=== PATIENT | male | born 1960 | race Caucasian/White ===

== ENCOUNTER 2019-11-09 08:15 | Inpatient (IN) ==
[2019-11-09] MEDS ORDERED: DEXTROSE 50% 25 GM/50 ML VIAL IV PRN ×2 (10:03)
[2019-11-09] MEDS ORDERED: GLUCAGON 1 MG VIAL IM PRN ×2 (10:03)
[2019-11-09] MEDS ORDERED: CEFUROXIME INJ 1,500 MG in SODIUM CHLORIDE 0.9% 100 ML IV ONE (10:03)
[2019-11-09] MEDS ORDERED: VANCOMYCIN INJ 1,000 MG in SODIUM CHLORIDE 0.9% 250 ML IV ONE (11:32)
[2019-11-09 11:45] LABS: Basophils # 0.1 10*3/uL (0.0-0.2); Basophils % 0.7 % (0.0-0.8); Eosinophils # 0.5 10*3/uL (0.0-0.87); Eosinophils % 5.1 % (0.00-10.9); Hematocrit 48.9 VOL% (42.0-52.0); Hemoglobin 17.1 GM/DL (14.0-18.0); Immature Granulocytes % 0.3 %; Immature Granulocytes Absolute 0.03 #; Lymphocytes # 1.6 10*3/uL (1.4-4.0); Lymphocytes % 17.6 % (21.2-54.2); Mean Platelet Volume 9.4 FL (9.6-12.0); Monocytes % 7.4 % (1.7-12.7); Neutrophils % 68.9 % (38.7-73.9); Platelet Count 193 T/CUMM (130-400); Red Blood Count 5.62 MC/CUMM (3.8-5.5); Red Cell Distribution Width 12.5 % (9.3-17.3)
[2019-11-09 12:14] LABS: Albumin 3.8 G/DL (3.4-5.0); Bilirubin,Total 0.5 MG/DL (0.2-1.0); Calcium 9.6 MG/DL (8.5-10.1); Osmolality,Calculated 273.1 MOS/KG (273-304); Total Protein 8.1 G/DL (6.4-8.3)
[2019-11-09] MEDS ORDERED: hydrALAZINE 20 MG/1 ML VIAL IV PRN (12:54)
[2019-11-09] MEDS: SODIUM CHLORIDE 0.9% 1,000 ML IV SCH (13:14)
[2019-11-09] MEDS ORDERED: INFLUENZA VIRUS VACCINE 0.5 ML SYRINGE IM ONE (14:24)
[2019-11-09] MEDS: CHLORHEXIDINE 4% SOLN 118 ML BOTTLE TOP SCH ×2 (14:59→22:20)
[2019-11-09] MEDS: INSULIN LISPRO 100 UNIT/ML SUBCUT SCH ×2 (16:27→22:20)
[2019-11-09] MEDS: CHLORHEXIDINE 0.12% ORAL RINSE 60 ML BOTTLE SWISH/SPIT SCH (22:21)
[2019-11-10] MEDS ORDERED: PAPAVERINE 60 MG/2 ML VIAL ONE (04:23)
[2019-11-10] MEDS ORDERED: VANCOMYCIN 1,000 MG VIAL ONE (04:23)
[2019-11-10] MEDS ORDERED: VANCOMYCIN 500 MG VIAL ONE (04:23)
[2019-11-10] MEDS ORDERED: DIAZEPAM 5 MG TABLET PO ONE (05:00)
[2019-11-10] MEDS ORDERED: PANTOPRAZOLE 40 MG TABLET PO ONE (05:00)
[2019-11-10] MEDS ORDERED: SUFentanil 250 MCG/5 ML AMP ONE (05:40)
[2019-11-10] MEDS ORDERED: MIDAZOLAM 10 MG/2 ML VIAL ONE (05:41)
[2019-11-10] MEDS ORDERED: MINERAL OIL/PETROLATUM OPH OINT 3.5 GM TUBE ONE (05:41)
[2019-11-10] MEDS ORDERED: VECURONIUM 10 MG VIAL IV ONE (05:41)
[2019-11-10] MEDS ORDERED: VANCOMYCIN INJ 1,000 MG in SODIUM CHLORIDE 0.9% 250 ML IV ONE (06:00)
[2019-11-10] MEDS ORDERED: NITROPRUSSIDE 50 MG/2 ML VIAL ONE ×2 (07:13→07:18)
[2019-11-10] MEDS ORDERED: PHENYLEPHRINE DRIP 40 MG/250 ML PREMIX IV ONE (07:13)
[2019-11-10] MEDS ORDERED: POTASSIUM CHLORIDE RIDER 100 ML IV ONE (07:40)
[2019-11-10] MEDS ORDERED: ALBUMIN 5% 12.5 GM/250 ML VIAL IV ONE (07:40)
[2019-11-10 07:54] LABS: ABG Base Excess -0.2 MMOL/L (-2.5-2.5); ABG HCO3 24.3 MMOL/L (20-26); ABG Oxygen Saturation 99.6 % (95-100); ABG TCO2 21.1 MMOL/L (23-27); Glucose Heart Surgery 162 MG/DL (74-106); Hematocrit Heart Surgery 45.3 PERCENT (42-52); Hemoglobin Heart Surgery 14.8 G/DL (14.0-18.0); Patient Temperature 37 CELCIUS; Potassium Heart/CVR 3.9 MMOL/L (3.5-5.1); Sodium Heart/CVR 138 MMOL/L (135-145)
[2019-11-10 09:17] LABS: Hematocrit Heart Surgery 29.2 PERCENT (42-52); Hemoglobin Heart Surgery 9.4 G/DL (14.0-18.0); PCO2 Patient Temp Venous 34.9 MM HG; PH Patient Temp Venous 7.446; PO2 Patient Temp Venous 37.3 MM HG; Potassium Heart/CVR 4.7 MMOL/L (3.5-5.1); VBG Base Excess 0.4 MEQ/L (0-4); VBG HCO3 24.5 MEQ/L (24-28); VBG Oxygen Saturation 81.5 %; VBG PCO2 40.3 MMHG (41-51); VBG PH 7.402; VBG PO2 45.9 MMHG (17-40)
[2019-11-10 09:50] LABS: Hemoglobin Heart Surgery 11.7 G/DL (14.0-18.0); PCO2 Patient Temp Venous 32.4 MM HG; PH Patient Temp Venous 7.482; PO2 Patient Temp Venous 42.1 MM HG; Potassium Heart/CVR 4.4 MMOL/L (3.5-5.1); VBG Base Excess 0.4 MEQ/L (0-4); VBG HCO3 24.4 MEQ/L (24-28); VBG Oxygen Saturation 86.4 %; VBG PH 7.437; VBG PO2 51.9 MMHG (17-40)
[2019-11-10] MEDS ORDERED: FAMOTIDINE 20 MG/2 ML VIAL IV ONE (09:58)
[2019-11-10] MEDS: CHLORHEXIDINE 4% SOLN 118 ML BOTTLE TOP SCH (10:14)
[2019-11-10] MEDS: INSULIN LISPRO 100 UNIT/ML SUBCUT SCH ×2 (10:14→12:17)
[2019-11-10] MEDS: CHLORHEXIDINE 0.12% ORAL RINSE 60 ML BOTTLE SWISH/SPIT SCH ×2 (10:14→21:44)
[2019-11-10 10:19] LABS: Hemoglobin Heart Surgery 11.3 G/DL (14.0-18.0); PCO2 Patient Temp Venous 21.8 MM HG; PH Patient Temp Venous 7.613; Potassium Heart/CVR 4.6 MMOL/L (3.5-5.1); VBG Base Excess 0.2 MEQ/L (0-4); VBG HCO3 23.6 MEQ/L (24-28); VBG Oxygen Saturation 78.6 %; VBG PCO2 33.8 MMHG (41-51); VBG PH 7.462; VBG PO2 41.6 MMHG (17-40)
[2019-11-10 10:20] LABS: PO2 Patient Temp Venous 20.5 MM HG
[2019-11-10] MEDS ORDERED: THROMBIN TOPICAL (RECOMBINANT) 5,000 UNIT VIAL TOP ONE (10:20)
[2019-11-10] MEDS ORDERED: methylPREDNISolone SOD SUC 1,000 MG/8 ML VIAL ONE (10:55)
[2019-11-10] MEDS ORDERED: FUROSEMIDE 20 MG/2 ML VIAL ONE (10:55)
[2019-11-10] MEDS ORDERED: MAGNESIUM SULFATE 5 GM/10 ML VIAL IV ONE (10:55)
[2019-11-10] MEDS ORDERED: DEXTROSE 5% KCL 20 MEQ 20 MEQ/1,000 ML BAG IV ONE (10:55)
[2019-11-10] MEDS ORDERED: SODIUM BICARBONATE 50 MEQ/50 ML VIAL IV ONE (10:55)
[2019-11-10] MEDS ORDERED: HEPARIN 10,000 UNIT/10 ML VIAL ONE (10:55)
[2019-11-10] MEDS ORDERED: ALBUMIN 25% 25 GM/100 ML VIAL IV ONE (10:55)
[2019-11-10] MEDS ORDERED: LIDOCAINE 2% 5 ML VIAL ONE ×2 (10:55→12:15)
[2019-11-10] MEDS ORDERED: PROTAMINE SULFATE 250 MG/25 ML VIAL IV ONE (10:55)
[2019-11-10] MEDS ORDERED: MANNITOL 100 GM/500 ML BAG IV ONE (10:55)
[2019-11-10 11:09] LABS: ABG Base Excess 0.6 MMOL/L (-2.5-2.5); ABG HCO3 24.4 MMOL/L (20-26); ABG Oxygen Saturation 98.4 % (95-100); ABG PH 7.449 (7.35-7.45); ABG PO2 296.5 MM HG (80-95); ABG TCO2 25.5 MMOL/L (23-27); Glucose Heart Surgery 196 MG/DL (74-106); Hemoglobin Heart Surgery 10.8 G/DL (14.0-18.0); Ionized Calcium Arterial 1.17 MMOL/L (1.21-1.46); PH Patient Temp Arterial 7.449; PO2 Patient Temp Arterial 296.5 MM HG; Patient Temperature 37 CELCIUS; Potassium Heart/CVR 3.7 MMOL/L (3.5-5.1); Sodium Heart/CVR 135 MMOL/L (135-145)
[2019-11-10] MEDS ORDERED: MAGNESIUM SULF RIDER 2 GM in PREMIX 1 EACH IV PRN (12:05)
[2019-11-10] MEDS ORDERED: DEXTROSE 50% 25 GM/50 ML VIAL IV PRN ×2 (12:05)
[2019-11-10] MEDS ORDERED: VECURONIUM 10 MG VIAL IV PRN ×2 (12:05)
[2019-11-10] MEDS ORDERED: MAGNESIUM SULF RIDER 4 GM in PREMIX 1 EACH IV PRN (12:05)
[2019-11-10] MEDS ORDERED: ALBUMIN 5% 12.5 GM in PREMIX 1 EACH IV PRN (12:05)
[2019-11-10] MEDS ORDERED: MORPHINE 10 MG/1 ML VIAL IV PRN (12:05)
[2019-11-10] MEDS ORDERED: SODIUM CHLORIDE 0.45% 1,000 ML IV SCH ×2 (12:05)
[2019-11-10] MEDS ORDERED: MIDAZOLAM 2 MG/2 ML VIAL IV PRN (12:05)
[2019-11-10] MEDS ORDERED: MIDAZOLAM 10 MG/2 ML VIAL IV PRN (12:05)
[2019-11-10] MEDS ORDERED: PHENYLEPHRINE DRIP 40 MG/250 ML PREMIX IV PRN (12:05)
[2019-11-10] MEDS ORDERED: INSULIN REGULAR DRIP 100 ML IV SCH (12:05)
[2019-11-10] MEDS ORDERED: INSULIN REGULAR 100 UNIT/ML IV ONE (12:05)
[2019-11-10] MEDS ORDERED: CHLORHEXIDINE 4% SOLN 118 ML BOTTLE TOP PRN (12:05)
[2019-11-10] MEDS ORDERED: INSULIN REGULAR 100 UNIT/ML IV PRN (12:05)
[2019-11-10] MEDS ORDERED: ACETAMINOPHEN 650 MG SUPP RECTAL PRN (12:05)
[2019-11-10] MEDS ORDERED: NITROPRUSSIDE 100 MG in DEXTROSE 5% 250 ML IV PRN (12:05)
[2019-11-10] MEDS ORDERED: CALCIUM CHLORIDE 1,000 MG/10 ML SYRINGE IV PRN (12:05)
[2019-11-10] MEDS ORDERED: LACTATED RINGERS 250 ML IV PRN (12:05)
[2019-11-10] MEDS ORDERED: SODIUM CHLORIDE 0.9% 1,000 ML IV ONE (12:16)
[2019-11-10] MEDS ORDERED: HEPARIN/NACL 0.9% 2 UNITS/ML 500 ML IV ONE (12:16)
[2019-11-10] MEDS ORDERED: SODIUM CHLORIDE 0.9% 500 ML IV ONE (12:16)
[2019-11-10] MEDS ORDERED: PHENYLEPHRINE DRIP 20 MG/250 ML PREMIX IV ONE (12:16)
[2019-11-10] MEDS ORDERED: SEVOFLURANE 1 UNIT/15 MINUTE INH ONE (12:16)
[2019-11-10] MEDS ORDERED: CALCIUM CHLORIDE 1,000 MG/10 ML VIAL IV ONE (12:16)
[2019-11-10] MEDS ORDERED: ETOMIDATE 40 MG/20 ML VIAL IV ONE (12:16)
[2019-11-10] MEDS ORDERED: NITROGLYCERIN DRIP 50 MG/250 ML BOTTLE IV ONE (12:16)
[2019-11-10] MEDS ORDERED: diphenhydrAMINE 50 MG/1 ML VIAL ONE (12:16)
[2019-11-10] MEDS ORDERED: LACTATED RINGERS 1,000 ML IV ONE (12:16)
[2019-11-10] MEDS: SODIUM CHLORIDE 0.9% 1,000 ML IV SCH (12:17)
[2019-11-10 12:34] LABS: ABG Base Excess 0.5 MMOL/L (-2.5-2.5); ABG HCO3 24.8 MMOL/L (20-26); ABG Oxygen Saturation 96.2 % (95-100); ABG PCO2 43.9 MM HG (35-48); ABG PH 7.378 (7.35-7.45); ABG PO2 82.9 MM HG (80-95); ABG TCO2 23.5 MMOL/L (23-27); Glucose Heart Surgery 177 MG/DL (74-106); Hematocrit Heart Surgery 31.6 PERCENT (42-52); Hemoglobin Heart Surgery 10.2 G/DL (14.0-18.0); Potassium Heart/CVR 3.6 MMOL/L (3.5-5.1)
[2019-11-10 12:39] LABS: Basophils # 0.1 10*3/uL (0.0-0.2); Basophils % 0.4 % (0.0-0.8); Eosinophils # 0.2 10*3/uL (0.0-0.87); Eosinophils % 1.5 % (0.00-10.9); Hematocrit 29.3 VOL% (42.0-52.0); Hemoglobin 10.1 GM/DL (14.0-18.0); Immature Granulocytes % 0.7 %; Immature Granulocytes Absolute 0.09 #; Lymphocytes # 0.6 10*3/uL (1.4-4.0); Lymphocytes % 5.3 % (21.2-54.2); Mean Corpuscular HGB Conc 34.5 GM/DL (32-36); Mean Corpuscular Volume 89.3 FL (87-102); Mean Platelet Volume 9.8 FL (9.6-12.0); Neutrophils % 87.1 % (38.7-73.9); Platelet Count 157 T/CUMM (130-400); Red Blood Count 3.28 MC/CUMM (3.8-5.5); Red Cell Distribution Width 12.6 % (9.3-17.3); White Blood Count 12.2 T/CUMM (4-12)
[2019-11-10 12:58] LABS: CKMB % 3.4 %
[2019-11-10 13:02] LABS: Troponin I 6.71 NG/ML (0.00-0.045)
[2019-11-10 13:05] LABS: Albumin 2.9 G/DL (3.4-5.0); Bilirubin,Total 0.8 MG/DL (0.2-1.0); Calcium 8.4 MG/DL (8.5-10.1); Osmolality,Calculated 284.4 MOS/KG (273-304); Total Protein 5.7 G/DL (6.4-8.3)
[2019-11-10 13:07] LABS: PT Patient Result 11.1 SECS (9.6-12.2); Partial Thromboplastin Time 26.6 SECS (20.8-36.0)
[2019-11-10 13:28] LABS: Apearance,Urine CLEAR (Clear); Bilirubin,Urine Negative (Negative); Blood, Urine Large mg/dL (Negative); Glucose,Urine (UA) >=500 mg/dL (Negative); Ketones,Urine Negative (Negative); Nitrite,Urine Negative (Negative); Protein,Urine Negative; RBC,Urine 65 /HPF (0-4); Urine Color Yellow (Yellow); Urine Specific Gravity 1.031 (1.001-1.035); Urine Urobilinogen < 2.0 EU/DL (0.2-1.0)
[2019-11-10] MEDS: POTASSIUM CHLORIDE RIDER 20 MEQ in PREMIX 1 EACH IV PRN ×3 (13:32→18:40)
[2019-11-10] MEDS: POTASSIUM CHLORIDE RIDER 10 MEQ in PREMIX 1 EACH IV PRN ×3 (14:30→19:34)
[2019-11-10 14:42] LABS: ABG Base Excess -0.1 MMOL/L (-2.5-2.5); ABG HCO3 24.3 MMOL/L (20-26); ABG Oxygen Saturation 94.2 % (95-100); ABG PCO2 42.3 MM HG (35-48); ABG PH 7.381 (7.35-7.45); ABG PO2 72.3 MM HG (80-95); ABG TCO2 22.9 MMOL/L (23-27); Glucose Heart Surgery 146 MG/DL (74-106); Hematocrit Heart Surgery 30.5 PERCENT (42-52); Hemoglobin Heart Surgery 9.9 G/DL (14.0-18.0); Potassium Heart/CVR 4.3 MMOL/L (3.5-5.1)
[2019-11-10] MEDS ORDERED: SODIUM CHLORIDE 0.9% 1,000 ML IV PRN (14:42)
[2019-11-10] MEDS ORDERED: PROTAMINE SULFATE 50 MG/5 ML VIAL IV ONE (14:58)
[2019-11-10 16:01] LABS: ABG Base Excess 0.1 MMOL/L (-2.5-2.5); ABG HCO3 24.6 MMOL/L (20-26); ABG Oxygen Saturation 98.2 % (95-100); ABG PCO2 42.1 MM HG (35-48); ABG PH 7.385 (7.35-7.45); ABG TCO2 23.3 MMOL/L (23-27); Glucose Heart Surgery 139 MG/DL (74-106); Hematocrit Heart Surgery 27.4 PERCENT (42-52); Hemoglobin Heart Surgery 8.8 G/DL (14.0-18.0); Potassium Heart/CVR 3.9 MMOL/L (3.5-5.1)
[2019-11-10 18:21] LABS: ABG Base Excess 0.6 MMOL/L (-2.5-2.5); ABG HCO3 24.9 MMOL/L (20-26); ABG Oxygen Saturation 96.9 % (95-100); ABG PCO2 39.1 MM HG (35-48); ABG PH 7.414 (7.35-7.45); ABG PO2 84.6 MM HG (80-95); ABG TCO2 22.8 MMOL/L (23-27); Glucose Heart Surgery 157 MG/DL (74-106); Hematocrit Heart Surgery 30.3 PERCENT (42-52); Hemoglobin Heart Surgery 9.8 G/DL (14.0-18.0); Potassium Heart/CVR 3.8 MMOL/L (3.5-5.1)
[2019-11-10] MEDS: MORPHINE 4 MG/1 ML VIAL IV PRN ×3 (18:24→23:48)
[2019-11-10 19:44] LABS: ABG Base Excess 0.8 MMOL/L (-2.5-2.5); ABG HCO3 25.1 MMOL/L (20-26); ABG Oxygen Saturation 97.7 % (95-100); ABG PCO2 36.8 MM HG (35-48); ABG PH 7.437 (7.35-7.45); ABG PO2 88.5 MM HG (80-95); ABG TCO2 22.8 MMOL/L (23-27); Glucose Heart Surgery 131 MG/DL (74-106); Hematocrit Heart Surgery 28.5 PERCENT (42-52); Hemoglobin Heart Surgery 9.2 G/DL (14.0-18.0); Potassium Heart/CVR 4.4 MMOL/L (3.5-5.1)
[2019-11-10 20:18] LABS: CKMB % 2.9 %
[2019-11-10 20:19] LABS: Troponin I 5.53 NG/ML (0.00-0.045)
[2019-11-10] MEDS: ONDANSETRON 4 MG/2 ML VIAL IV PRN (20:26)
[2019-11-10 23:25] LABS: ABG HCO3 25.3 MMOL/L (20-26); ABG Oxygen Saturation 97.6 % (95-100); ABG PCO2 36.7 MM HG (35-48); ABG PO2 86.9 MM HG (80-95); ABG TCO2 22.5 MMOL/L (23-27); Glucose Heart Surgery 112 MG/DL (74-106); Hematocrit Heart Surgery 32.3 PERCENT (42-52); Hemoglobin Heart Surgery 10.5 G/DL (14.0-18.0); Potassium Heart/CVR 3.9 MMOL/L (3.5-5.1)
[2019-11-11] MEDS: VANCOMYCIN INJ 1,000 MG in SODIUM CHLORIDE 0.9% 250 ML IV SCH ×2 (00:27→12:44)
[2019-11-11 01:00] LABS: ABG HCO3 24.4 MMOL/L (20-26); ABG Oxygen Saturation 97.3 % (95-100); ABG PCO2 39.3 MM HG (35-48); ABG PH 7.405 (7.35-7.45); ABG PO2 87.5 MM HG (80-95); ABG TCO2 22.3 MMOL/L (23-27); Glucose Heart Surgery 136 MG/DL (74-106); Hematocrit Heart Surgery 31.8 PERCENT (42-52); Hemoglobin Heart Surgery 10.3 G/DL (14.0-18.0)
[2019-11-11] MEDS: MORPHINE 4 MG/1 ML VIAL IV PRN ×3 (01:27→05:52)
[2019-11-11 04:05] LABS: ABG Base Excess 0.2 MMOL/L (-2.5-2.5); ABG HCO3 24.2 MMOL/L (20-26); ABG Oxygen Saturation 93.9 % (95-100); ABG PCO2 36.6 MM HG (35-48); ABG PH 7.438 (7.35-7.45); ABG PO2 72.1 MM HG (80-95); ABG TCO2 25.3 MMOL/L (23-27); Glucose Heart Surgery 116 MG/DL (74-106); Hemoglobin Heart Surgery 10.7 G/DL (14.0-18.0); Potassium Heart/CVR 3.7 MMOL/L (3.5-5.1)
[2019-11-11 04:06] LABS: Basophils % 0.1 % (0.0-0.8); Hematocrit 29.5 VOL% (42.0-52.0); Hemoglobin 10.1 GM/DL (14.0-18.0); Immature Granulocytes % 0.4 %; Immature Granulocytes Absolute 0.05 #; Lymphocytes # 0.4 10*3/uL (1.4-4.0); Lymphocytes % 2.8 % (21.2-54.2); Mean Corpuscular HGB Conc 34.2 GM/DL (32-36); Mean Corpuscular Volume 88.6 FL (87-102); Mean Platelet Volume 9.9 FL (9.6-12.0); Monocytes % 6.5 % (1.7-12.7); Neutrophils % 90.2 % (38.7-73.9); Platelet Count 136 T/CUMM (130-400); Red Blood Count 3.33 MC/CUMM (3.8-5.5); Red Cell Distribution Width 12.9 % (9.3-17.3); White Blood Count 13.1 T/CUMM (4-12)
[2019-11-11 04:26] LABS: Band Neutrophils 2 % (0-10); Hypochromasia 1+; Lymphocytes 3 % (20-55); Platelet Estimate Normal; Segmented Neutrophils 90 % (50-85); Total Cells Counted 100
[2019-11-11 04:29] LABS: CKMB % 2.6 %
[2019-11-11 04:30] LABS: Troponin I 6.37 NG/ML (0.00-0.045)
[2019-11-11 04:48] LABS: Bilirubin,Direct 0.15 MG/DL (0.0-0.20); Bilirubin,Total 0.6 MG/DL (0.2-1.0); Calcium 7.8 MG/DL (8.5-10.1); Osmolality,Calculated 284.1 MOS/KG (273-304); Total Protein 5.4 G/DL (6.4-8.3)
[2019-11-11] MEDS: KETOROLAC 30 MG/1 ML VIAL IV SCH ×3 (06:13→18:44)
[2019-11-11] MEDS: NEBIVOLOL 5 MG TABLET PO SCH (08:29)
[2019-11-11] MEDS: CHLORHEXIDINE 0.12% ORAL RINSE 60 ML BOTTLE SWISH/SPIT SCH ×2 (08:29→21:40)
[2019-11-11] MEDS ORDERED: DILTIAZEM CD 240 MG CAPSULE PO SCH (09:00)
[2019-11-11] MEDS: ONDANSETRON 4 MG/2 ML VIAL IV PRN ×3 (09:42→18:34)
[2019-11-11] MEDS ORDERED: ZALEPLON 5 MG CAPSULE PO PRN (09:50)
[2019-11-11] MEDS ORDERED: POTASSIUM CHLORIDE 20 MEQ TABLET PO PRN (09:50)
[2019-11-11] MEDS ORDERED: MAGNESIUM SULF RIDER 4 GM in PREMIX 1 EACH IV PRN (09:50)
[2019-11-11] MEDS ORDERED: GLUCAGON 1 MG VIAL IM PRN (09:50)
[2019-11-11] MEDS ORDERED: MAGNESIUM SULF RIDER 2 GM in PREMIX 1 EACH IV PRN (09:50)
[2019-11-11] MEDS ORDERED: ALUMINUM/MAGNES/SIMETH MAX STR 30 ML UDCUP PO PRN (09:50)
[2019-11-11] MEDS ORDERED: MAGNESIUM HYDROXIDE SUSP 30 ML UDCUP PO PRN (09:50)
[2019-11-11] MEDS ORDERED: ALBUTEROL 2.5 MG/3 ML NEB RESP TX PRN (09:59)
[2019-11-11] MEDS ORDERED: SODIUM CHLOR 0.45% KCL 20 MEQ 20 MEQ/1,000 ML BAG IV SCH (10:00)
[2019-11-11] MEDS ORDERED: DEXTROSE 10% 250 ML BAG IV PRN (10:04)
[2019-11-11] MEDS: DILTIAZEM CD 240 MG CAPSULE PO SCH (10:14)
[2019-11-11] MEDS ORDERED: AMINOCAPROIC ACID 5,000 MG/20 ML VIAL ONE (10:16)
[2019-11-11] MEDS: DOCUSATE SODIUM 100 MG CAPSULE PO SCH (10:24)
[2019-11-11] MEDS: hydrALAZINE 25 MG TABLET PO SCH ×2 (10:24→21:40)
[2019-11-11] MEDS: ASPIRIN EC 81 MG TABLET PO SCH (10:24)
[2019-11-11] MEDS: PANTOPRAZOLE 40 MG TABLET PO SCH (10:24)
[2019-11-11] MEDS: hydroCHLOROthiazide 12.5 MG CAPSULE PO SCH (10:24)
[2019-11-11] MEDS: FERROUS SULFATE 325 MG TABLET PO SCH (10:24)
[2019-11-11] MEDS: MONTELUKAST 10 MG TABLET PO SCH (10:25)
[2019-11-11] MEDS: HYDROmorphone 2 MG/1 ML VIAL IV PRN ×2 (10:32→17:44)
[2019-11-11] MEDS: ACETAMINOPHEN 325 MG TABLET PO PRN (10:33)
[2019-11-11 12:08] LABS: Troponin I 5.83 NG/ML (0.00-0.045)
[2019-11-11] MEDS: INSULIN REGULAR 100 UNIT/ML SUBCUT SCH ×3 (12:44→21:42)
[2019-11-11] MEDS: INSULIN GLARGINE 100 UNIT/ML SUBCUT SCH (12:45)
[2019-11-11] MEDS ORDERED: traMADol 50 MG TABLET PO PRN (14:14)
[2019-11-12] MEDS: VANCOMYCIN INJ 1,000 MG in SODIUM CHLORIDE 0.9% 250 ML IV SCH ×2 (00:56→12:03)
[2019-11-12] MEDS: KETOROLAC 30 MG/1 ML VIAL IV SCH ×5 (00:57→21:30)
[2019-11-12] MEDS: INSULIN REGULAR 100 UNIT/ML SUBCUT SCH ×6 (01:09→21:30)
[2019-11-12] MEDS ORDERED: KETOROLAC 30 MG/1 ML VIAL IV PRN (05:55)
[2019-11-12] MEDS ORDERED: FUROSEMIDE 40 MG/4 ML VIAL IV ONE (06:00)
[2019-11-12 06:02] LABS: Basophils % 0.1 % (0.0-0.8); Hematocrit 31.1 VOL% (42.0-52.0); Hemoglobin 10.4 GM/DL (14.0-18.0); Immature Granulocytes % 0.8 %; Immature Granulocytes Absolute 0.12 #; Lymphocytes # 0.6 10*3/uL (1.4-4.0); Lymphocytes % 4.2 % (21.2-54.2); Mean Corpuscular HGB Conc 33.4 GM/DL (32-36); Mean Corpuscular Volume 93.1 FL (87-102); Monocytes % 7.6 % (1.7-12.7); Neutrophils % 87.3 % (38.7-73.9); Platelet Count 127 T/CUMM (130-400); Red Blood Count 3.34 MC/CUMM (3.8-5.5); Red Cell Distribution Width 13.3 % (9.3-17.3); White Blood Count 15.1 T/CUMM (4-12)
[2019-11-12 06:27] LABS: Alanine Aminotransferase 26 U/L (16-61); Albumin 2.9 G/DL (3.4-5.0); Alkaline Phosphatase 56 U/L (45-117); Aspartate Amino Transferase 33 U/L (0-37); Bilirubin,Direct 0.13 MG/DL (0.0-0.20); Bilirubin,Indirect 0.9 MG/DL (0.0-1.0); Bilirubin,Total 0.9 MG/DL (0.2-1.0); Calcium 8.5 MG/DL (8.5-10.1); Osmolality,Calculated 289.1 MOS/KG (273-304); Total Protein 6.2 G/DL (6.4-8.3); Total Protein 6.4 G/DL (6.4-8.3)
[2019-11-12 06:28] LABS: Band Neutrophils 1 % (0-10); Hypochromasia 1+; Lymphocytes 5 % (20-55); Platelet Estimate Normal; Segmented Neutrophils 84 % (50-85); Total Cells Counted 100
[2019-11-12] MEDS: INSULIN GLARGINE 100 UNIT/ML SUBCUT SCH (08:29)
[2019-11-12] MEDS: CHLORHEXIDINE 0.12% ORAL RINSE 60 ML BOTTLE SWISH/SPIT SCH ×2 (08:30→21:30)
[2019-11-12] MEDS: MONTELUKAST 10 MG TABLET PO SCH (08:30)
[2019-11-12] MEDS: PANTOPRAZOLE 40 MG TABLET PO SCH (08:30)
[2019-11-12] MEDS: hydrALAZINE 25 MG TABLET PO SCH ×2 (08:30→21:29)
[2019-11-12] MEDS: NEBIVOLOL 5 MG TABLET PO SCH (08:30)
[2019-11-12] MEDS: hydroCHLOROthiazide 12.5 MG CAPSULE PO SCH (08:30)
[2019-11-12] MEDS: ASPIRIN EC 81 MG TABLET PO SCH (08:30)
[2019-11-12] MEDS: DILTIAZEM CD 240 MG CAPSULE PO SCH (08:30)
[2019-11-12] MEDS: FERROUS SULFATE 325 MG TABLET PO SCH (08:30)
[2019-11-12] MEDS: DOCUSATE SODIUM 100 MG CAPSULE PO SCH (08:30)
[2019-11-12] MEDS ORDERED: HYDROmorphone 2 MG/1 ML VIAL IV PRN (09:17)
[2019-11-12] MEDS: ONDANSETRON 4 MG/2 ML VIAL IV PRN (10:50)
[2019-11-12] MEDS ORDERED: ACETAMINOPHEN 325 MG/10.15 ML UDCUP PO PRN (14:08)
[2019-11-12] MEDS ORDERED: IBUPROFEN 200 MG TABLET PO PRN (14:10)
[2019-11-12] MEDS: ACETAMINOPHEN 325 MG TABLET PO PRN (18:13)
[2019-11-13] MEDS: INSULIN REGULAR 100 UNIT/ML SUBCUT SCH ×6 (00:47→21:49)
[2019-11-13] MEDS: KETOROLAC 30 MG/1 ML VIAL IV SCH ×4 (01:58→21:49)
[2019-11-13 06:21] LABS: Basophils % 0.2 % (0.0-0.8); Eosinophils # 0.1 10*3/uL (0.0-0.87); Eosinophils % 0.4 % (0.00-10.9); Hematocrit 28.1 VOL% (42.0-52.0); Hemoglobin 9.6 GM/DL (14.0-18.0); Immature Granulocytes % 0.8 %; Lymphocytes # 0.9 10*3/uL (1.4-4.0); Lymphocytes % 7.8 % (21.2-54.2); Mean Corpuscular HGB Conc 34.2 GM/DL (32-36); Mean Corpuscular Volume 91.8 FL (87-102); Mean Platelet Volume 10.7 FL (9.6-12.0); Neutrophils % 81.8 % (38.7-73.9); Platelet Count 129 T/CUMM (130-400); Red Blood Count 3.06 MC/CUMM (3.8-5.5); Red Cell Distribution Width 12.9 % (9.3-17.3); White Blood Count 12.1 T/CUMM (4-12)
[2019-11-13] MEDS: ACETAMINOPHEN 325 MG TABLET PO PRN (06:22)
[2019-11-13 07:00] LABS: Alanine Aminotransferase 21 U/L (16-61); Albumin 2.6 G/DL (3.4-5.0); Alkaline Phosphatase 62 U/L (45-117); Aspartate Amino Transferase 16 U/L (0-37); Bilirubin,Direct < 0.100 MG/DL (0.0-0.20); Blood Urea Nitrogen 28 MG/DL (7-18); Calcium 8.4 MG/DL (8.5-10.1); Estimated Glom Filtration Rate 108 ML/MIN; Glucose 168 MG/DL (74-106); Osmolality,Calculated 286.5 MOS/KG (273-304); Total Protein 5.9 G/DL (6.4-8.3)
[2019-11-13 07:15] LABS: Alanine Aminotransferase 23 U/L (16-61); Albumin 2.7 G/DL (3.4-5.0); Alkaline Phosphatase 55 U/L (45-117); Aspartate Amino Transferase 16 U/L (0-37); Bilirubin,Indirect 0.4 MG/DL (0.0-1.0); Total Protein 5.4 G/DL (6.4-8.3)
[2019-11-13] MEDS: INSULIN GLARGINE 100 UNIT/ML SUBCUT SCH (09:13)
[2019-11-13] MEDS: ASPIRIN EC 81 MG TABLET PO SCH (09:17)
[2019-11-13] MEDS: MONTELUKAST 10 MG TABLET PO SCH (09:17)
[2019-11-13] MEDS: NEBIVOLOL 5 MG TABLET PO SCH (09:17)
[2019-11-13] MEDS: hydrALAZINE 25 MG TABLET PO SCH ×2 (09:17→21:49)
[2019-11-13] MEDS: DILTIAZEM CD 240 MG CAPSULE PO SCH (09:17)
[2019-11-13] MEDS: hydroCHLOROthiazide 12.5 MG CAPSULE PO SCH (09:18)
[2019-11-13] MEDS: DOCUSATE SODIUM 100 MG CAPSULE PO SCH (09:18)
[2019-11-13] MEDS: PANTOPRAZOLE 40 MG TABLET PO SCH (09:18)
[2019-11-13] MEDS: CHLORHEXIDINE 0.12% ORAL RINSE 60 ML BOTTLE SWISH/SPIT SCH ×2 (09:18→21:49)
[2019-11-13] MEDS: FERROUS SULFATE 325 MG TABLET PO SCH (09:18)
[2019-11-14] MEDS: INSULIN REGULAR 100 UNIT/ML SUBCUT SCH ×6 (00:27→21:38)
[2019-11-14] MEDS: KETOROLAC 30 MG/1 ML VIAL IV SCH ×4 (02:27→21:37)
[2019-11-14 05:40] LABS: Basophils % 0.2 % (0.0-0.8); Eosinophils # 0.1 10*3/uL (0.0-0.87); Eosinophils % 0.8 % (0.00-10.9); Hematocrit 29.6 VOL% (42.0-52.0); Hemoglobin 10.1 GM/DL (14.0-18.0); Immature Granulocytes % 1.2 %; Immature Granulocytes Absolute 0.13 #; Lymphocytes # 1.4 10*3/uL (1.4-4.0); Lymphocytes % 12.6 % (21.2-54.2); Mean Corpuscular HGB Conc 34.1 GM/DL (32-36); Mean Corpuscular Volume 90.5 FL (87-102); Mean Platelet Volume 10.1 FL (9.6-12.0); Monocytes % 7.3 % (1.7-12.7); NRBC # 0.02 10*3/uL; Neutrophils % 77.9 % (38.7-73.9); Platelet Count 157 T/CUMM (130-400); Red Blood Count 3.27 MC/CUMM (3.8-5.5); Red Cell Distribution Width 12.8 % (9.3-17.3); White Blood Count 10.8 T/CUMM (4-12)
[2019-11-14 05:54] LABS: Albumin 2.7 G/DL (3.4-5.0); Bilirubin,Total 1.2 MG/DL (0.2-1.0); Calcium 8.8 MG/DL (8.5-10.1); Osmolality,Calculated 281.7 MOS/KG (273-304); Total Protein 6.1 G/DL (6.4-8.3)
[2019-11-14] MEDS: MONTELUKAST 10 MG TABLET PO SCH (09:41)
[2019-11-14] MEDS: FERROUS SULFATE 325 MG TABLET PO SCH (09:41)
[2019-11-14] MEDS: hydroCHLOROthiazide 12.5 MG CAPSULE PO SCH (09:41)
[2019-11-14] MEDS: ASPIRIN EC 81 MG TABLET PO SCH (09:41)
[2019-11-14] MEDS: DILTIAZEM CD 240 MG CAPSULE PO SCH (09:41)
[2019-11-14] MEDS: DOCUSATE SODIUM 100 MG CAPSULE PO SCH (09:41)
[2019-11-14] MEDS: NEBIVOLOL 5 MG TABLET PO SCH (09:41)
[2019-11-14] MEDS: hydrALAZINE 25 MG TABLET PO SCH ×2 (09:41→21:37)
[2019-11-14] MEDS: CHLORHEXIDINE 0.12% ORAL RINSE 60 ML BOTTLE SWISH/SPIT SCH ×2 (09:42→21:37)
[2019-11-14] MEDS: PANTOPRAZOLE 40 MG TABLET PO SCH (09:42)
[2019-11-14] MEDS: INSULIN GLARGINE 100 UNIT/ML SUBCUT SCH (09:42)
[2019-11-15] MEDS: INSULIN REGULAR 100 UNIT/ML SUBCUT SCH ×3 (00:30→09:52)
[2019-11-15] MEDS: KETOROLAC 30 MG/1 ML VIAL IV SCH ×2 (02:57→09:08)
[2019-11-15 05:04] LABS: Basophils # 0.1 10*3/uL (0.0-0.2); Basophils % 0.5 % (0.0-0.8); Eosinophils # 0.4 10*3/uL (0.0-0.87); Eosinophils % 4.4 % (0.00-10.9); Hemoglobin 9.8 GM/DL (14.0-18.0); Lymphocytes # 1.8 10*3/uL (1.4-4.0); Lymphocytes % 18.7 % (21.2-54.2); Mean Corpuscular HGB Conc 33.8 GM/DL (32-36); Mean Corpuscular Volume 91.5 FL (87-102); Mean Platelet Volume 9.7 FL (9.6-12.0); Monocytes % 7.8 % (1.7-12.7); NRBC # 0.04 10*3/uL; Neutrophils % 67.6 % (38.7-73.9); Platelet Count 180 T/CUMM (130-400); Red Blood Count 3.17 MC/CUMM (3.8-5.5); Red Cell Distribution Width 12.8 % (9.3-17.3); White Blood Count 9.6 T/CUMM (4-12)
[2019-11-15 05:45] LABS: Alanine Aminotransferase 34 U/L (16-61); Albumin 2.5 G/DL (3.4-5.0); Alkaline Phosphatase 74 U/L (45-117); Aspartate Amino Transferase 12 U/L (0-37); Bilirubin,Indirect 0.4 MG/DL (0.0-1.0); Blood Urea Nitrogen 22 MG/DL (7-18); Calcium 8.7 MG/DL (8.5-10.1); Estimated Glom Filtration Rate 113 ML/MIN; Glucose 122 MG/DL (74-106); Osmolality,Calculated 280.5 MOS/KG (273-304); Total Protein 5.6 G/DL (6.4-8.3)
[2019-11-15 08:08] VITALS: BP 135/81
[2019-11-15] MEDS: PANTOPRAZOLE 40 MG TABLET PO SCH (09:16)
[2019-11-15] MEDS: NEBIVOLOL 5 MG TABLET PO SCH (09:16)
[2019-11-15] MEDS: DOCUSATE SODIUM 100 MG CAPSULE PO SCH (09:16)
[2019-11-15] MEDS: FERROUS SULFATE 325 MG TABLET PO SCH (09:17)
[2019-11-15] MEDS: ASPIRIN EC 81 MG TABLET PO SCH (09:17)
[2019-11-15] MEDS: hydrALAZINE 25 MG TABLET PO SCH (09:17)
[2019-11-15] MEDS: DILTIAZEM CD 240 MG CAPSULE PO SCH (09:17)
[2019-11-15] MEDS: hydroCHLOROthiazide 12.5 MG CAPSULE PO SCH (09:17)
[2019-11-15] MEDS: MONTELUKAST 10 MG TABLET PO SCH (09:17)
[2019-11-15] MEDS: INSULIN GLARGINE 100 UNIT/ML SUBCUT SCH (09:18)
[2019-11-15] MEDS: CHLORHEXIDINE 0.12% ORAL RINSE 60 ML BOTTLE SWISH/SPIT SCH (11:07)
[2019-11-15] MEDS ORDERED: INFLUENZA VIRUS VACCINE 0.5 ML SYRINGE IM ONE (11:41)
== END 2019-11-15 12:50 | disposition home health service (06) | DRG 236 ==
LOC: N.4E 10:16 → N.CVR 11-10 11:48 → N.ICU 11-11 07:14 → N.TELES 11-11 13:21